=== PATIENT | female | born 1950 | race Caucasian/White ===

== ENCOUNTER 2018-06-21 11:20 | Emergency (ER) | payer MEDICARE ==
[~2018-06-21] VITALS: Wt 73.9 kg
[2018-06-21 11:42] VITALS: BP 156/75; PULSE 90; RESP 20
[2018-06-21] MEDS ORDERED: HC30CR25 TOP (12:57)
[2018-06-21] MEDS ORDERED: MUPI22OI2 TOP (12:57)
--- NOTE | 2018-06-21 13:07 | ERD ---
ER Documentation Chief Complaint Chief Complaint rash face x15 days+ HPI 68-year-old female patient with no significant past medical history presents to ED complaining of a rash that started 2 days ago. Patient reports sometimes it is itchy. Reports that she took Benadryl, had no relief. Denies any pain. States that she is never had this rash before. Denies taking any medications. Denies any difficulty swallowing, difficulty breathing, eye pain, blurred vision, fever, chills, headache. Denies exposure to pets or insects. Denies using any new creams or detergents. ROS All systems reviewed and are negative except as per history of present illness. Medications Home Meds Active Scripts Mupirocin* (Bactroban*) 2% -22 Gram Oint...g., 1 APPLIC TOP BID for 7 Days, EA Prov:TOMI LUCAS PA-C 06/21/18 Hydrocortisone* Topical (Hydrocortisone* Topical) 2.5%-28.3 Gm Cream..g., 1 APPLIC TOP BID, #1 TUB Prov:TOMI LUCAS PA-C 06/21/18 Allergies Allergies: Coded Allergies: No Known Allergy (Unverified , 06/21/18) PMhx/Soc Medical and Surgical Hx: pt denies Medical Hx, pt denies Surgical Hx Hx Alcohol Use: No Hx Substance Use: No Hx Tobacco Use: No Smoking Status: Never smoker FmHx Family History: No diabetes, No coronary disease Physical Exam Vitals Vital Signs Date Temp Pulse Resp B/P (MAP) Pulse Ox O2 O2 Flow FiO2 Time Delivery Rate 06/21/18 98.4 90 20 156/75 97 11:42 (102) Physical Exam Const: Wvz-wwe-qzixmhyzy, well-nourished. In no acute distress. Head: Atraumatic, normocephalic Eyes: Normal Conjunctiva without injection. No purulent discharge. PERRL. EOMI ENT: Normal external ear. Ear canal without erythema. Tympanic membrane pearly johnson without effusion or bulging. Nasal canal clear with normal turbinates. Moist oropharynx without tonsillar exudates. Non-erythematous pharynx. Uvula midline. No drooling. No trismus. Neck: Full range of motion. No meningismus. No cervical lymphadenopathy. Resp: Clear to auscultation bilaterally. No wheezing, rhonchi, rales, or crackles. No accessory muscle use. No retractions. Cardio: Regular rate and rhythm. No murmurs, rubs or gallops. Abd: Soft, non tender, non distended. Normal bowel sounds. No palpable masses. No rebound tenderness. No guarding. Skin: No petechiae or purpura. Macular papular rash, erythema noted on the bilateral cheeks with pustules noted on the chin and the left temporal region. No warmth to touch. No purulent discharge. Back: No midline tenderness. No CVA tenderness. Ext: No cyanosis, or edema. Neur: Awake and alert. Psych: Normal Mood and Affect Procedures/MDM 68-year-old female patient with no sniffing past medical history presents to ED complaining of a rash on her face. Patient is afebrile and nontoxic-appearing. Nonspecific dermatitis. My supervising physician, Dr. Tellez also evaluated patient at this time. Patient will also be covered with mupirocin in case of impetigo. Low suspicion for orbital cellulitis, anaphylaxis, scabies, SJS/TEN, TSS, Lyme's Disease, syphilis, RMSF, shingles, disseminated gonorrhea chlamydia, DIC, TTP, ITP, erythema multiforme, sepsis, cellulitis, necrotizing fasciitis, gangrene, meningococcemia, allergic contact dermatitis, urticaria, eczema, tinea infection, or other emergent conditions. Diagnosis: Rash Discharge medications: Mupirocin, Hydrocortisone Follow up with primary care physician in 1-2 days. Instructed patient to return to the ED sooner for any worsening symptoms. Patient's questions were answered. Patient is hemodynamically stable. Patient understood and agreed with discharge plan. Patient discharged stable. Disclaimer: Inadvertent spelling and grammatical errors are likely due to EHR/dictation software use and do not reflect on the overall quality of patient care. Also, please note that the electronic time recorded on this note does not necessarily reflect the actual time of the patient encounter. Departure Diagnosis: Primary Impression: Rash Condition: Stable Patient Instructions: Self-Care for Skin Rashes, Dermatitis, Non-Specific Referrals: [facility] Usted se burgess hecho un examen mdico de control que le indica que no est en ulisses condicin que requiera tratamiento urgente en el Departamento de Emergencia. Un estudio ms profundo y el tratamiento de fitzgerald condicin pueden esperar sin ningn riesgo hasta que usted sea atendida/o en el consultorio de fitzgerald mdico o ulisses clnica. Es responsabilidad suya arreglar ulisses ryan para el seguimiento del babita. MANEJO DE CONDICIONES NO URGENTES EN EL FUTURO 1) Si usted tiene un mdico de atencin primaria: Usted debera llamar a fitzgerald mdico de atencin primaria antes de venir al departamento de emergencia. Despus de las horas de consultorio, fitzgerald doctor o fitzgerald asociado/a est disponible por telfono. El mdico o enfermero de arik en el servicio telefnico puede asesorarle por gavi medio para atender el problema, o babita contrario se puede programar ulisses ryan. 2) Si usted no tiene un mdico de atencin primaria: Llame al mdico o clnica de referencia que aparece abajo june las horas de consultorio para hacer ulisses ryan para que le vean. CLINICAS: [facility] [phone] [facility] [phone] [facility] [phone] [facility] [place] [phone] [facility] [place] [id number] [phone] [facility]. [phone] [facility] () Usted se burgess hecho un examen mdico de control que le indica que no est en ulisses condicin que requiera tratamiento urgente en el Departamento de Emergencia. Un estudio ms profundo y el tratamiento de fitzgerald condicin pueden esperar sin ningn riesgo hasta que usted sea atendida/o en el consultorio de fitzgerald mdico o ulisses clnica. Es responsabilidad suya arreglar ulisses ryan para el seguimiento del babita. MANEJO DE CONDICIONES NO URGENTES EN EL FUTURO 1) Si usted tiene un mdico de atencin primaria: Usted debera llamar a fitzgerald mdico de atencin primaria antes de venir al departamento de emergencia. Despus de las horas de consultorio, fitzgerald doctor o fitzgerald asociado/a est disponible por telfono. El mdico o enfermero de arik en el servicio telefnico puede asesorarle por gavi medio para atender el problema, o babita contrario se puede programar ulisses ryan. 2) Si usted no tiene un mdico de atencin primaria: Llame al mdico o condado institucions de referencia que aparece abajo june las horas de consultorio para hacer ulisses ryan para que le vean. SI USTED NO PUEDE PAGAR PARA KEON UN MEDICO puede ir a: [facility] [address] [place] [address] [facility] [address] [place] [address] [facility] [address] [place] [address] [facility] [address] [place], [place] [phone] Additional Instructions: Llame al doctor MAANA y van ulisses RYAN PARA DENTRO DE 2-3 PABLO para ulisses remisin para keon a un dermatlogo.Dgale a la secretaria que nosotros le instruimos hacer esta ryan.Avise o llame si fitzgerald condicin se empeora antes de la ryan. Regresa aqui si peor o no mejor. TOMI LUCAS PA-C Jun 21, 2018 13:07
== END 2018-06-21 13:18 | disposition home or self-care (01) ==
LOC: FTE 11:20
DX: R21 Rash and other nonspecific skin eruption (principal)
CPT/HCPCS: 99283